=== PATIENT | female | born 1970 | race Caucasian/White ===

== ENCOUNTER 2021-07-10 18:00 | Emergency (ER) | payer MEDICARE ==
[2021-07-10 18:56] LABS: HEMOGLOBIN 12.9 gm/dl (12.3-15.3); RED BLOOD COUNT 4.72 M/UL (4.00-5.10); WHITE BLOOD COUNT 5.7 K/UL (4.5-11.0)
[2021-07-10 19:20] LABS: BUN/CREATININE RATIO 13 (0-10)
[2021-07-10] MEDS ORDERED: DOXYCYCLINE HY100 MG PO (21:21)
[2021-07-10] MEDS ORDERED: HYDROCODON-ACE1 EAC4 PO (21:21)
[2021-07-10] MEDS ORDERED: PHENERGAN 12.12.5 M1 PO (22:32)
== END 2021-07-10 21:50 | disposition home or self-care (01) ==
LOC: ER1 18:00
PROVIDERS: Emergency Medicine
DX: J18.9 Pneumonia, unspecified organism (principal); I10 Essential (primary) hypertension; E78.5 Hyperlipidemia, unspecified; Z90.710 Acquired absence of both cervix and uterus; E03.9 Hypothyroidism, unspecified; Z88.0 Allergy status to penicillin; Z88.8 Allergy status to other drugs, medicaments and biological substances; Z90.49 Acquired absence of other specified parts of digestive tract
CPT/HCPCS: 71045; 80053; 81001; 82550; 82553; 83690; 84484; 85025; 85379; 96374; 96375; 96376; 99285; J2270; J2405; Q9967

== ENCOUNTER 2021-08-10 16:06 | Emergency (ER) | payer OTHER, MEDICARE ==
[~2021-08-10 16:06] MED LIST: DOXYCYCLINE HY100 MG PO; HYDROCODON-ACE1 EAC4 PO; PHENERGAN 12.12.5 M1 PO
[2021-08-10] MEDS ORDERED: HYDROCODON-ACE1 EAC6 PO (21:52)
[2021-08-10] MEDS ORDERED: LIDOCAINE PAIN1 EACH TP (21:52)
[2021-08-10] MEDS ORDERED: ROBAXIN 750 MG750 MG PO (21:52)
[2021-08-10] MEDS ORDERED: MELOXICAM15 MG PO (21:52)
== END 2021-08-10 22:24 | disposition home or self-care (01) ==
LOC: ER1 16:06
DX: S22.41XA Multiple fractures of ribs, right side, initial encounter for closed fracture (principal); F17.200 Nicotine dependence, unspecified, uncomplicated; Z88.0 Allergy status to penicillin; V49.9XXA Car occupant (driver) (passenger) injured in unspecified traffic accident, initial encounter; Y92.009 Unspecified place in unspecified non-institutional (private) residence as the place of occurrence of the external cause
CPT/HCPCS: 71111; 72125; 96372; 96374; 99284; J1170; J1885; J2405